=== PATIENT | male | born 1990 | race Two or more races ===

== ENCOUNTER 2023-11-02 15:46 | Inpatient (IN) ==
[2023-11-02 16:42] LABS: Basophils # (auto) 0.04 K/uL (0.00-0.20); Basophils % (auto) 0.3 %; Eosinophils # (auto) 0.18 K/uL (0.00-0.50); Eosinophils % (auto) 1.5 %; Hematocrit (blood only) 45.6 % (42.0-52.0); Hemoglobin 15.8 g/dl (14.0-18.0); Immature Granulocytes # (auto) 0.07 K/uL (0.01-0.20); Immature Granulocytes % (auto) 0.6 %; Lymphocytes # (auto) 2.97 K/uL (1.20-3.40); Lymphocytes % (auto) 25.2 %; Mean Corpuscular Hemoglobin 29.9 pg (25.0-34.0); Mean Corpuscular Hgb Conc 34.6 g/dL (32.0-36.0); Mean Corpuscular Volume 86.4 fL (80.0-100.0); Mean Platelet Volume 8.8 fL (9.4-12.4); Monocytes % (auto) 5.9 %; Neutrophils # (auto) 7.81 K/uL (1.40-6.50); Neutrophils % (auto) 66.5 %; Platelet Count 317 K/uL (130-400); RDW Standard Deviation 38.2 fL (36.4-46.3); Red Blood Count 5.28 M/uL (4.70-6.10); White Blood Count 11.77 K/ul (4.8-10.8)
[2023-11-02 16:58] LABS: Appearance Urine Clear (Clear); Bacteria Urine Automated None Seen (None Seen); Bilirubin Urine Negative (Negative); Blood Urine Trace (Negative); Color Urine Yellow; Glucose Urine UA Negative (Negative); Hyaline Casts Urine Present /lpf (None Presnt); Ketones Urine Trace (Negative); Leukocyte Esterase Urine Trace (Negative); Mucus Urine Present (None Prsent); Nitrite Urine Negative (Negative); Protein Urine 3+ (Negative); Urobilinogen Urine Negative (Negative); WBC Urine Automated 0-5 /hpf (0-5); pH Urine 5.5 (4.5-7.5)
[2023-11-02 17:01] LABS: Albumin Globulin Ratio 1.3 (0.9-2); Albumin Level 5.1 gm/dl (3.4-5.0); BUN Creatinine Ratio 23.4 (10-20); Bilirubin,Total 0.5 mg/dl (0.2-1.0); Calcium 9.5 mg/dl (8.6-10.3); Est GFR (African American) 148.1 ml/min; Est GFR (Non-African American) 127.7 ml/min; Globulin 3.9 gm/dl (2.5-4.0); Potassium 3.5 mmol/L (3.5-5.1)
--- NOTE | 2023-11-02 17:06 | Emergency Department Note ---
Impression & Plan Acute psychosis ED Provider Note HISTORY OF PRESENT ILLNESS: Patient is a 33-year-old male presenting with acute psychosis. Patient was brought in by police custody. State troopers report that they stopped him on a traffic stop and the patient seemed to be speaking nonsensically. The patient then took his car to the [employer] dealership and drove his car into the garage and started taking off his close and speaking nonsensically and police were called. Patient reports that he is hearing voices, and he reports that the voices sound like his fiance, his odcuffw-lv-ack and his fiance's . Reports that the voices are telling him to "go away." Patient denies any suicidal or homicidal ideation. He reports that [facility] but he is not currently on any psychiatric medications. He reports that "I was on an injection but it was too expensive and I could not afford it." He denies seeing any outpatient providers. He reports he is from [place] and "the voices told me to come here." ROS: as above PHYSICAL EXAM: Constitutional: Patient appears in no acute distress. HENT: Head: Normocephalic and atraumatic. Eyes: EOMI, PERRL Mouth/Throat: Mucous membranes moist. Neck: Trachea midline. Neck supple. Skin: Warm and dry. No rash, erythema, pallor or cyanosis Psychiatric: Patient appears well groomed. Makes poor eye contact. Speech is normal volume and rate. Neurological: Alert and keenly responsive. CN II-XII grossly intact, moving all extremities equally and fully. MDM: - Vitals signs showed hypertension and tachycardia. - History obtained via patient and police. History as above. - Chronic conditions affecting care: none - Differential diagnoses include, but are not limited to: Psychosis; UTI; electrolyte abnormality; drug intoxication; alcohol intoxication - External medical records reviewed. - Laboratory workup interpreted by myself showed slight leukocytosis (WBC 11.77); stable electrolytes; slightly elevated anion gap (12); normal TSH; negative alcohol/acetaminophen/salicylate levels - UA negative for infection - UDS negative - COVID negative - Patient started making comments about wanting to kill his jpzeur-zo-ocs and take all of his money and 302 was petitioned by the [facility] health protective services case worker and upheld by myself. On reassessment, the patient is speaking nonsensically and has tangential thought. He does appear to be in acute psychosis. - Patient was evaluated by staff for admission to [facility] psychiatric unit [address] [place] [address] - Patient admitted to inpatient psychiatric unit [address] [place] [address] for further evaluation and management. ASSESSMENT AND PLAN: Diagnosis: Acute psychosis Plan: admit to [address] [place] [address] Past Med/Surg History Problem List (Updated 11/02/23 @ 21:22 by Albina Garcia MD) Acute psychosis (Acute) Social History Smoking Status: Current some day smoker Tobacco Type: Cigarettes Preferred Language: Belarusian Feels Safe at Home: No Gender Identity: Male Home Meds Home Medications Medication Instructions Recorded Confirmed No Known Home Medications 11/02/23 11/02/23 Results & Data (ED) Vital Signs Vital Signs - 24 hr 11/02/23 16:03 11/02/23 19:28 Temperature 37.0 C Temperature Source Oral Pulse Rate 97 H Pulse Rate [Finger] 88 Pulse Rhythm Regular Pulse Rhythm [Finger] Regular Pulse Strength Normal Pulse Strength [Finger] Normal Respiratory Rate 18 18 Respiratory Effort / Characteristics Non-Labored Non-Labored Spontaneous Respiratory Depth Normal Normal Respiratory Pattern Regular Regular Blood Pressure 180/105 H Blood Pressure [Right Arm] 168/94 H Blood Pressure Mean 130 Blood Pressure Mean [Right Arm] 118 Blood Pressure Position Sitting Blood Pressure Position [Right Arm] Sitting Pulse Oximetry 97 97 Oxygen Delivery Method Room Air Room Air Sepsis Recent Fever Within 48 Hours No Sepsis New/Unexplained Change in Mental Status N/A Sepsis Action Taken by Nursing No Action Required Laboratory Data 11/02/23 16:20 11/02/23 16:20 Lab Results 11/02/23 11/02/23 Range/Units 16:03 16:20 WBC 11.77 H (4.8-10.8) K/ul RBC 5.28 (4.70-6.10) M/uL Hgb 15.8 (14.0-18.0) g/dl Hct 45.6 (42.0-52.0) % MCV 86.4 (80.0-100.0) fL MCH 29.9 (25.0-34.0) pg MCHC 34.6 (32.0-36.0) g/dL RDW Std Deviation 38.2 (36.4-46.3) fL RDW Coeff of Arianna 12.0 (11.5-14.5) % Plt Count 317 (130-400) K/uL MPV 8.8 L (9.4-12.4) fL Immature Gran % (Auto) 0.6 % Neut % (Auto) 66.5 % Lymph % (Auto) 25.2 % [place] % (Auto) 5.9 % Eos % (Auto) 1.5 % Baso % (Auto) 0.3 % Neut # (Auto) 7.81 H (1.40-6.50) K/uL Lymph # (Auto) 2.97 (1.20-3.40) K/uL [place] # (Auto) 0.70 H (0.11-0.59) K/uL Eos # (Auto) 0.18 (0.00-0.50) K/uL Baso # (Auto) 0.04 (0.00-0.20) K/uL Immature Gran # (Auto) 0.07 (0.01-0.20) K/uL Sodium 137 (136-145) mmol/L Potassium 3.5 (3.5-5.1) mmol/L Chloride 101 (98-107) mmol/L Carbon Dioxide 24 (21-32) mmol/L Anion Gap 12 H (3-11) BUN 15 (6-23) mg/dl Creatinine 0.64 (0.6-1.4) mg/dl Est Cr Clr Drug Dosing 186.0 ml/min Est GFR ( Amer) 148.1 ml/min Est GFR (Non-Af Amer) 127.7 ml/min BUN/Creatinine Ratio 23.4 H (10-20) Glucose 125 H (70-99(Fasting)) mg/dl Calcium 9.5 (8.6-10.3) mg/dl Total Bilirubin 0.5 (0.2-1.0) mg/dl AST 25 (13-39) U/L ALT 46 (7-52) U/L Alkaline Phosphatase 69 (34-104) U/L Total Protein 9.0 H (6.0-8.3) gm/dl Albumin 5.1 H (3.4-5.0) gm/dl Globulin 3.9 (2.5-4.0) gm/dl Albumin/Globulin Ratio 1.3 (0.9-2) TSH 1.192 (0.300-4.500) uIu/ml Urine Color Yellow Urine Appearance Clear (Clear) Urine pH 5.5 (4.5-7.5) Ur Specific [place] 1.030 (1.000-1.030) Urine Protein 3+ H (Negative) Urine Glucose (UA) Negative (Negative) Urine Ketones Trace H (Negative) Urine Blood Trace H (Negative) Urine Nitrite Negative (Negative) Urine Bilirubin Negative (Negative) Urine Urobilinogen Negative (Negative) Ur Leukocyte Esterase Trace H (Negative) Urine WBC (Auto) 0-5 (0-5) /hpf Urine RBC (Auto) 3-5 H (0-2) /hpf U Hyaline Cast (Auto) 3-5 H (0-2) /lpf U Epithel Cells (Auto) 3-5 H (0-2) /hpf Urine Bacteria (Auto) None Seen (None Seen) Hyaline Casts Present A (None Presnt) /lpf Urine Mucus Present A (None Prsent) Salicylates < 3.0 L (3.0-30) mg/dl Urine Opiates Screen Neg (Neg) Ur Methadone, Qual Neg (Neg) Urine Fentanyl Screen Neg (Neg) Acetaminophen < 3 L (10-30) ug/ml Urine Barbiturates Neg (Neg) Ur Phencyclidine (PCP) Neg (Neg) U Amphetamin/Meth Scrn Neg (Neg) MDMA (Ecstasy) Screen Neg (Neg) U Benzodiazepines Scrn Neg (Neg) Ur Cocaine Metabolite Neg (Neg) U Marijuana (THC) Screen Neg (Neg) Ethyl Alcohol mg/dL < 10.0 (<10.0) mg/dl SARS-CoV-2, RNA, NAAT NEGATIVE (NEGATIVE) Discharge Plan Visit Data Chief Complaint: Mental Health Evaluation Stated Complaint: [facility] ED Provider: Albina Garcia Discharge Problem: Acute psychosis Forms Stand Alone Forms: My [facility], Suicide Prevention Resources Prescriptions Prescriptions: No Action No Known Home Medications Referrals Referrals: PCP,NO [Primary Care Provider] -
[2023-11-02 17:16] LABS: Thyroid Stimulating Hormone 1.192 uIu/ml (0.300-4.500)
[2023-11-02 17:25] LABS: Acetaminophen < 3 ug/ml (10-30); Salicylate < 3.0 mg/dl (3.0-30)
[2023-11-02 18:00] LABS: Amphetamines+Metham, Urine Neg (Neg); Barbiturates, Urine Neg (Neg); Benzodiazepine, Urine Neg (Neg); Cocaine, Urine Neg (Neg); Fentanyl, Urine Neg (Neg); MDMA (Ecstacy), Urine Neg (Neg); Marijuana, Urine Neg (Neg); Methadone, Urine Neg (Neg); Opiate, Urine Neg (Neg); Phencyclidine, Urine Neg (Neg)
[2023-11-02] MEDS ORDERED: ACETAMINOPHEN 325 MG TAB PO PRN (21:00)
[2023-11-02] MEDS ORDERED: MAGNESIUM HYDROXIDE SUSP 30 ML UDC PO PRN (21:00)
[2023-11-02] MEDS ORDERED: ALUMINUM/MAGNESIUM SUSP 30 ML UDC PO PRN (21:00)
[2023-11-02] MEDS ORDERED: SODIUM CHLORIDE 0.65% NA SOLN 45 ML (OCEAN) PRN (21:00)
[2023-11-02] MEDS ORDERED: hydrOXYzine HCl 25 MG TAB PO PRN (21:00)
[2023-11-02] MEDS ORDERED: BISMUTH SUBSALICYLATE LIQD 236 ML PO PRN (21:00)
[2023-11-02] MEDS ORDERED: OLANZapine 5 MG TABLET PO PRN (21:46)
[2023-11-02] MEDS: OLANZapine 10 MG TAB PO SCH (22:04)
[2023-11-02] MEDS: hydrOXYzine HCl 25 MG TAB PO PRN (22:41)
[2023-11-02] MEDS: NICOTINE POLACRILEX 2 MG GUM MT PRN (22:45)
[2023-11-02] MEDS: Patient's ALLERGY Info needs ENTERED STA (22:56)
--- NOTE | 2023-11-03 08:56 | History & Physical ---
Date of Service November 03, 2023 Impression / Recommendations Impression JAMIN BURCH is a 33-year-old man who currently lives in [place] with his parents, has a history of schizophrenia, and was admitted on 11/02/23 21:38 on a 302 involuntary commitment for disorganized/erratic behavior and command auditory hallucinations. His 302 expires on 11/06/2023 at 2016. Diagnostically consistent with unspecified psychosis with differential including acute exacerbation of schizophrenia vs BPAD current episode of john vs schizoaffective disorder current episode of john. Substance-induced or withdrawal unlikely given negative UDS and denial of any recent alcohol use. Discussed medication treatment options in detail. Discussed risks, benefits and alternatives. Patient would like to continue and consented to olanzapine for mood, psychosis and sleep. Reviewed side effects including but not limited to: movement (TD, NMS), cardiac (QTc prolongation), and metabolic (stroke, insulin resistance) and necessity for fasting lipid and glucose labwork and AIMS done with score of 0. MNPR due to acute psychosis, recent HI, command AH Overall I spent a total of 80 minutes for this admission including review of chart records, review of labwork, direct evaluation of the patient, counseling the patient, ordering medication, risk assessment, discussion with the psychiatric liason RN and documentation in the electronic health record. (1) Unspecified psychosis not due to a substance or known physiological condition: (2) Schizophrenia: Plan 11/03/2023: The patient was admitted to the [facility] ([facility] unit) on q15 min checks (behavioral with suicide precautions) for safety. The patient will participate in group, recreational, and milieu therapies and will be offered additional individual and family sessions as clinically appropriate. -Olanzapine 15mg HS -Olanzapine 5mg BID prn for psychosis/agitation -Fasting lipid panel and HbA1c in the morning -Elopement precautions Inventory Assets Strengths: supportive family, has housing, willing to take medication Needs: outpatient providers, additional coping skills, safety and stabilization Suicide Risk Level Suicide Risk Level: Moderate (q15 min suicide checks) (command AH with psychosis and disorganized behaviors but denies SI and feels safe in the hospital) Risk Factors Assessment Male: Yes : No Do You Have Access To A Gun?: No Health Problems: No Mental Health Diagnoses: Yes Substance Use Disorders: No Previous Attempt: Yes Family History of Suicide: No Previous Psychiatric Hospitalization: Yes Hopelessness: No Protective Factors Assessment Buddhism Beliefs: Yes : Yes (maybe engaged?) Employed: No Supportive Family: Yes Psychiatric History Identifying Data JAMIN BURCH is a 33-year-old man who currently lives in [place] with his parents, has a history of schizophrenia, and was admitted on 11/02/23 21:38 on a 302 involuntary commitment for disorganized/erratic behavior and command auditory hallucinations. Chief Complaint "Someone is trying to destroy my family". History of Present Illness Jamin presented to the hospital via police after driving from [place] and parking his car in a local car dealership garage and disrobing. While in the emergency department he reported HI to harm his xlbhtl-ss-say. He was placed on a 302 commitment with the petition stating: "Jamin was brought to ED by State Police after a traffic stop and a disturbance by [facility]arcus at [facility]. Jamin presented to the ED voluntarily, but does not appear to be of sound mind and is unable to sign himself in voluntarily. Jamin appears very disoriented, has admitted to hearing voices/command hallucinations that are telling him to kill his father in law. Jamin believes his father in law is out to get Jamin and Jamin's father, Joon. Jamin is hyper fixated on his father in law and stated to me that his father in law needed to , that he wanted to kill him. Jamin called me into his room in ED and stated he came up with a plan and the plan was he would not kill his father in law if he gave Jamin everything he owns, which includes land, money and houses. Jamin stated he had a mission and needed to finish it. Jamin is from [place] and he stated the voices told him to drive to complete his mission." He accepted olanzapine po last evening after arriving to the unit and reports he slept "like a baby" overnight and without any side effects from the medication today. He has been focused on making multiple phone calls and taking notes on various pieces of paper today. At times playing music from the radio loudly. He expresses significant concerns regarding his jgghqxt-jg-baj in [place], whom he suspects is involved in a conspiracy tied to Gaddafi and the [place] regime. He harbors beliefs that black magic is being employed against his family, implicating both his father, a former um specialist, and his pigthl-oo-znq, a high- ranking official in [facility]. Despite these distressing beliefs, he denies any intent or thoughts of harm towards others and does not feel controlled by the auditory hallucinations. He does feel the voices told him to come to [place] for the "the last fight" and references the number 13 as being influential, noting that it has been 13 years since "the revolution in 2010, they tried to reclaim power using magic and tried to start a war between [place] and [place]." Today he remains focused on his hkxiytn-bn-oxf, rather his fxddvj-na-clt, stating belief that his qesmhsu-uv-jxi "He hates me. I feel like he's greedy. It's about Gaddafi and the regime. They use black magic." Expands that "I think Gaddafi is the devil. He saw it ending in 2010. My dad came to [place] on a mission. They used my dad, me, and my kuekbdx-hu-pvy, who my sister to finish their mission." He reports his sleep was "up and down" prior to last night. He doesn't feel he has any current mental health conditions and expresses a belief that there is an external effort to misrepresent him as mentally ill, a claim he refutes. He resides with his parents in [place] and has a background in automotive work, having owned a garage. His educational journey was interrupted by family issues, which he perceives as part of a deliberate effort to undermine him. He moved to the [place] with his family in 2008. He confirms the absence of firearms at home and discloses a suicide attempt in 2013 via sleeping pill overdose. Regarding other medical conditions he mentions taking vitamins but expresses willingness to forego them temporarily if needed. He also reports experiencing eye issues, though he is unable to speak to any details about the condition or whether he is under the care of an optimist or lost and found clerk though does mention having an eye injection at one point in the past. Past Psychiatric History Current Psychiatric Diagnosis: unspecified Psychotic disorder Outpatient Services: none Previous Psych Admissions: [facility] Dec 2022 Do You Have Access To A Gun?: No History of Previous Suicide Attempt: Yes (2013 via overdose of sleeping pills) Past Medication Trials: Abilify 30mg po (last filled 12/19/2022), hx MORRIS but too expensive Past Head Trauma/Neuro History History of Concussion/Seizure: No Allergies Allergy/AdvReac Type Severity Reaction Status Date / Time No Known Allergies Allergy Unverified 11/02/23 22:44 Home Medications Medication Instructions Recorded Confirmed Type PreserVision AREDS PO BID 11/02/23 History Family History Family History of: Doesn't Know Alcohol History Hx of Alcohol Use Over the Past 12 Months: Yes AUDIT Total Score: 2 Smoking Use Have You Smoked or Used Tobacco Products in the Last 30 Days: Yes tobacco type: cigarettes Smoking Status: Current every day smoker Smoking packs per day: 0.25 Substance History Hx of Prescription Med Misuse Over the Past 12 Months: No Hx of Over the Counter Med Misuse Over the Past 12 Months: No Hx of Inhalent Misuse Over the Past 12 Months: No Hx of Organic Substance Use Over the Past 12 Months: No Hx of Illegal Substances/Street Drug Use Over Past 12 Months: No Problems as a Result of Past Substance Use: None Identified Problems as a Result of Past Substance Use Comments: "related to temple beliefs" Personal History Living Arrangements: Home Childhood: Raised in [facility], moved to the in 2008 Highest Grade Completed: Some College Employment Status: Unemployed Beliefs That Will Affect Care: Cultural Patient History Social History Smoking Status: Current every day smoker Tobacco Type: Cigarettes Preferred Language: Slovak Sub Prior Required: No Beliefs That Will Affect Care: Cultural Feels Safe at Home: Yes Gender Identity: Male Assistive Devices: Glasses Review of Systems Review of Systems: All systems reviewed & are unremarkable except as noted in HPI & below Physical Exam Psychiatric: Orientation: alert and oriented x 3 Apperance: appropriately dressed and appropriately groomed Eye Contact: + fair eye contact Motor Behavior: no abnormal motor movements Speech: + abnormal rate/rhythm/volume of speech (slightly rapid) Affect: + anxious affect and + irritable affect Mood: + anxious mood and + irritable mood Thought Process: + tangential thought process Thought Content: + paranoid, + delusions and + persecution Suicidal Thoughts: denies suicidal thoughts Homicidal Thoughts: denies homicidal thoughts (currently, but endorsed in the ED prior to admission) Hallucinations: + auditory hallucinations and + visual hallucinations Insight: + poor insight Judgment: + limited judgement Vital Signs (Past 24 Hours): Last Vital Signs Temp 36.2 C L 11/03/23 06:05 Pulse 57 L 11/03/23 06:05 Resp 18 11/03/23 06:05 BP 117/74 11/03/23 06:05 Pulse Ox 98 11/03/23 06:05 O2 Del Method Room Air 11/03/23 06:05 Exam Statement: A physical exam was performed in the ED by Dr. Garcia for the purposes of medical clearance. I accept that physical as correct and adequate for the purposes of the inpatient physical exam. Results & Data ([facility]) Laboratory Results Laboratory Results - last 24 hr 11/02/23 11/02/23 16:03 16:20 WBC 11.77 H RBC 5.28 Hgb 15.8 Hct 45.6 MCV 86.4 MCH 29.9 MCHC 34.6 RDW Std Deviation 38.2 RDW Coeff of Arianna 12.0 Plt Count 317 MPV 8.8 L Immature Gran % (Auto) 0.6 Neut % (Auto) 66.5 Lymph % (Auto) 25.2 [place] % (Auto) 5.9 Eos % (Auto) 1.5 Baso % (Auto) 0.3 Neut # (Auto) 7.81 H Lymph # (Auto) 2.97 [place] # (Auto) 0.70 H Eos # (Auto) 0.18 Baso # (Auto) 0.04 Immature Gran # (Auto) 0.07 Sodium 137 Potassium 3.5 Chloride 101 Carbon Dioxide 24 Anion Gap 12 H BUN 15 Creatinine 0.64 Est Cr Clr Drug Dosing 186.0 Est GFR ( Amer) 148.1 Est GFR (Non-Af Amer) 127.7 BUN/Creatinine Ratio 23.4 H Glucose 125 H Calcium 9.5 Total Bilirubin 0.5 AST 25 ALT 46 Alkaline Phosphatase 69 Total Protein 9.0 H Albumin 5.1 H Globulin 3.9 Albumin/Globulin Ratio 1.3 TSH 1.192 Urine Color Yellow Urine Appearance Clear Urine pH 5.5 Ur Specific [place] 1.030 Urine Protein 3+ H Urine Glucose (UA) Negative Urine Ketones Trace H Urine Blood Trace H Urine Nitrite Negative Urine Bilirubin Negative Urine Urobilinogen Negative Ur Leukocyte Esterase Trace H Urine WBC (Auto) 0-5 Urine RBC (Auto) 3-5 H U Hyaline Cast (Auto) 3-5 H U Epithel Cells (Auto) 3-5 H Urine Bacteria (Auto) None Seen Hyaline Casts Present A Urine Mucus Present A Salicylates < 3.0 L Urine Opiates Screen Neg Ur Methadone, Qual Neg Urine Fentanyl Screen Neg Acetaminophen < 3 L Urine Barbiturates Neg Ur Phencyclidine (PCP) Neg U Amphetamin/Meth Scrn Neg MDMA (Ecstasy) Screen Neg U Benzodiazepines Scrn Neg Ur Cocaine Metabolite Neg U Marijuana (THC) Screen Neg Ethyl Alcohol mg/dL < 10.0 SARS-CoV-2, RNA, NAAT NEGATIVE Current Inpatient Medications Current Inpatient Medications: Current Inpatient Medications Acetaminophen (Acetaminophen 325 Mg Tab) 650 mg PO Q4H PRN PRN Reason: Headache or Minor Fever Stop: 12/02/23 20:59 Al Hydrox/Mg Hydrox/Simethicone (Aluminum/Magnesium Susp 30 Ml Udc) 30 ml PO Q4H PRN PRN Reason: GI Upset Stop: 12/02/23 20:59 Bismuth Subsalicylate (Bismuth Subsalicylate Liqd 236 Ml) 15 ml PO PRN PRN PRN Reason: Loose Stool Stop: 12/02/23 20:59 Hydroxyzine HCl (Hydroxyzine Hcl 25 Mg Tab) 50 mg PO HSZ PRN PRN Reason: Insomnia Stop: 12/02/23 20:59 Last Admin: 11/02/23 22:41 Dose: 50 mg Hydroxyzine HCl (Hydroxyzine Hcl 25 Mg Tab) 25 mg PO Q4H PRN PRN Reason: Anxiety Stop: 12/02/23 20:59 Magnesium Hydroxide (Magnesium Hydroxide Susp 30 Ml Udc) 30 ml PO DAILY PRN PRN Reason: Constipation Stop: 12/02/23 20:59 Nicotine Polacrilex (Nicotine Polacrilex 2 Mg Gum) 1 piece MT PRN PRN PRN Reason: Smoking cessation Stop: 12/02/23 22:29 Last Admin: 11/02/23 22:45 Dose: 1 piece Olanzapine (Olanzapine 10 Mg Tab) 10 mg PO HS BONNIE Stop: 12/02/23 21:59 Last Admin: 11/02/23 22:04 Dose: 10 mg Olanzapine (Olanzapine 5 Mg Tablet) 5 mg PO BID PRN PRN Reason: Agitation Stop: 12/02/23 21:45 Sodium Chloride (Sodium Chloride 0.65% Na Soln 45 Ml ([place])) 1 - 2 sprays NA PRN PRN PRN Reason: Nasal Dryness/Congestion Stop: 12/02/23 20:59
[2023-11-03] MEDS: OLANZapine 5 MG TABLET PO SCH (20:47)
[2023-11-04 08:33] LABS: Chol HDL Ratio 5.6 (0-5)
[2023-11-04 08:42] LABS: Estimated Average Glucose 131 mg/dl; Hemoglobin A1C 6.2 % (4.5-5.6)
--- NOTE | 2023-11-04 09:02 | Psychiatric Progress Note ---
Date of Service November 04, 2023 Impression / Recommendations Impression JAMIN BURCH is a 33-year-old man who currently lives in [place] with his parents, has a history of schizophrenia, and was admitted on 11/02/23 21:38 on a 302 involuntary commitment for disorganized/erratic behavior and command auditory hallucinations. His 302 expires on 11/06/2023 at 2016. Diagnostically consistent with unspecified psychosis with differential including acute exacerbation of schizophrenia vs BPAD current episode of john vs schizoaffective disorder current episode of john. Substance-induced or withdrawal unlikely given negative UDS and denial of any recent alcohol use. A: Some lessening of paranoia and reports feeling less controlled by command hallucinations. Declining to sign any ROIs so we can speak with his parents or other supports. Ongoing attempts to get records from his previous hospitalization, no response yet. Seems to be tolerating and showing benefit from olanzapine. Labwork notable for elevated HbA1c and TGs. As his insight improves will attempt to consider transition from olanzapine to abilify for MORRIS option and slightly lower risk of metabolic side effects. MNPR due to acute psychosis, recent HI, command AH Overall, I spent a total of 35 minutes on this case including meeting with the patient, reviewing the chart, nursing report, multidisciplinary team meeting, orders, and documentation. (1) Unspecified psychosis not due to a substance or known physiological condition: (2) Schizophrenia: Plan 11/03/2023: The patient was admitted to the [facility] ([facility] mental health unit) on q15 min checks (behavioral with suicide precautions) for safety. The patient will participate in group, recreational, and milieu therapies and will be offered additional individual and family sessions as clinically appropriate. -Olanzapine 15mg HS -Olanzapine 5mg BID prn for psychosis/agitation -Fasting lipid panel and HbA1c in the morning -Elopement precautions Inventory Assets Strengths: supportive family, has housing, willing to take medication Needs: outpatient providers, additional coping skills, safety and stabilization Suicide Risk Level Suicide Risk Level: Moderate (q15 min suicide checks) (command AH with psychosis and disorganized behaviors but denies SI and feels safe in the hospital) Risk Factors Assessment Male: Yes : No Do You Have Access To A Gun?: No Health Problems: No Mental Health Diagnoses: Yes Substance Use Disorders: No Previous Attempt: Yes Family History of Suicide: No Previous Psychiatric Hospitalization: Yes Hopelessness: No Protective Factors Assessment Amish Beliefs: Yes : Yes (maybe engaged?) Employed: No Supportive Family: Yes Interval History Identifying Information JAMIN BURCH is a 33-year-old man who currently lives in [place] with his parents, has a history of schizophrenia, and was admitted on 11/02/23 21:38 on a 302 involuntary commitment for disorganized/erratic behavior and command audit ory hallucinations. Chief Complaint "Much better they're not sending signals for anything now". Review of Systems Sleep Information Total Hours of Sleep: 8 Meal Information Percent Meal Consumed - Breakfast: 100 Percent Meal Consumed - Lunch: 75 Percent Meal Consumed - Dinner: 100 Subjective Subjective Patient was seen & assessed and interval progress reviewed with treatment team nursing and social work. Restless, guarded, suspicious, playing loud music yesterday. He attended evening community meeting and reported his mood as "grateful". Reported sabianist beliefs about his parents trying to control him using the Quran. Allowed labwork this morning. Today reports his mood is good and "much better" due to not receiving signals anymore. He reports relief noting "they're not controlling me anymore". States that he realizes that the signal was being sent via his girlfriend's number to influence him and his father, [id number], and [id number]. Denies any side effects from the medications nor other concerns. Continues to decline to sign an REYNA to involve his parents or any other supports. States he plans to live in an airbnb after he leaves the hospital. Physical Exam Psychiatric Orientation: alert and oriented x 3 Apperance: appropriately dressed and appropriately groomed Eye Contact: + fair eye contact Motor Behavior: no abnormal motor movements Speech: normal rate/rhythm/volume of speech (slightly rapid) Affect: + constricted affect Mood: + anxious mood Thought Process: + circumstantial thought process Thought Content: + paranoid, + delusions and + persecution Suicidal Thoughts: denies suicidal thoughts Homicidal Thoughts: denies homicidal thoughts Hallucinations: + auditory hallucinations; no visual hallucinations Insight: + limited insight Judgment: + limited judgement Vital Signs (Past 24 Hours) Last Vital Signs Temp 36.2 C L 11/03/23 06:05 Pulse 66 11/04/23 06:18 Resp 16 11/04/23 06:18 BP 137/87 11/04/23 06:18 Pulse Ox 98 11/04/23 06:18 O2 Del Method Room Air 11/04/23 06:18 Results & Data ([facility]) Laboratory Results Laboratory Results - last 24 hr 11/04/23 11/04/23 07:47 07:53 Estimat Average Glucose 131 Hemoglobin A1c 6.2 H Triglycerides 215 H Cholesterol 195 LDL Cholesterol, Calc 117 VLDL Cholesterol, Calc 43 H HDL Cholesterol 35 Cholesterol/HDL Ratio 5.6 H Current Inpatient Medications Current Inpatient Medications: Current Inpatient Medications Acetaminophen (Acetaminophen 325 Mg Tab) 650 mg PO Q4H PRN PRN Reason: Headache or Minor Fever Stop: 12/02/23 20:59 Al Hydrox/Mg Hydrox/Simethicone (Aluminum/Magnesium Susp 30 Ml Udc) 30 ml PO Q4H PRN PRN Reason: GI Upset Stop: 12/02/23 20:59 Bismuth Subsalicylate (Bismuth Subsalicylate Liqd 236 Ml) 15 ml PO PRN PRN PRN Reason: Loose Stool Stop: 12/02/23 20:59 Hydroxyzine HCl (Hydroxyzine Hcl 25 Mg Tab) 50 mg PO HSZ PRN PRN Reason: Insomnia Stop: 12/02/23 20:59 Last Admin: 11/02/23 22:41 Dose: 50 mg Hydroxyzine HCl (Hydroxyzine Hcl 25 Mg Tab) 25 mg PO Q4H PRN PRN Reason: Anxiety Stop: 12/02/23 20:59 Magnesium Hydroxide (Magnesium Hydroxide Susp 30 Ml Udc) 30 ml PO DAILY PRN PRN Reason: Constipation Stop: 12/02/23 20:59 Nicotine Polacrilex (Nicotine Polacrilex 2 Mg Gum) 1 piece MT PRN PRN PRN Reason: Smoking cessation Stop: 12/02/23 22:29 Last Admin: 11/04/23 06:34 Dose: 1 piece Olanzapine (Olanzapine 5 Mg Tablet) 5 mg PO BID PRN PRN Reason: Agitation Stop: 12/02/23 21:45 Olanzapine (Olanzapine 5 Mg Tablet) 15 mg PO HS BONNIE Stop: 12/03/23 21:59 Last Admin: 11/03/23 20:47 Dose: 15 mg Sodium Chloride (Sodium Chloride 0.65% Na Soln 45 Ml ([place])) 1 - 2 sprays NA PRN PRN PRN Reason: Nasal Dryness/Congestion Stop: 12/02/23 20:59 Mental Health & Subst Abuse Tx Therapist Name of Therapist: None Date of Therapist Appointment: N/A Patient Registrar Name of Patient Registrar: N/A Post Discharge Appointments Primary Care Physician Name Of Family Doctor/PCP: None
[2023-11-04] MEDS ORDERED: BENZTROPINE MESYLATE 1 MG TAB PO PRN (22:51)
--- NOTE | 2023-11-05 08:39 | Psychiatric Progress Note ---
Date of Service November 05, 2023 Impression / Recommendations Impression JAMIN BURCH is a 33-year-old man who currently lives in [place] with his parents, has a history of schizophrenia, and was admitted on 11/02/23 21:38 on a 302 involuntary commitment for disorganized/erratic behavior and command auditory hallucinations. His 302 expires on 11/07/2023 @ 1956. Diagnostically consistent with unspecified psychosis with differential including acute exacerbation of schizophrenia vs BPAD current episode of john vs schizoaffective disorder current episode of john. Substance-induced or withdrawal unlikely given negative UDS and denial of any recent alcohol use. A: Still with some possible hyperreligious beliefs and elevated mood but no evidence for acute psychosis, delusions nor paranoia. Participating well in groups. Sleep improving and tolerating olanzapine and agreeable to continuing with this as he likes that it helps with his sleep. Declining support meeting. Unlikely to meet 303 criteria given improvement in symptoms so working on disposition planning including outpatient psychiatry, PCP but options limited due to his lack of health insurance. He is now denying HI. MNPR due to acute psychosis, recent HI, command AH Overall, I spent a total of 30 minutes on this case including meeting with the patient, reviewing the chart, nursing report, multidisciplinary team meeting, orders, and documentation. (1) Unspecified psychosis not due to a substance or known physiological condition: (2) Schizophrenia: (3) Bipolar affective disorder, current episode manic: Plan 11/05/2023: Continue current medications and tx plan. 11/04/2023: Continue current medications and tx plan. 11/03/2023: The patient was admitted to the [facility] ([facility] mental health unit) on q15 min checks (behavioral with suicide precautions) for safety. The patient will participate in group, recreational, and milieu therapies and will be offered additional individual and family sessions as clinically appropriate. -Olanzapine 15mg HS -Olanzapine 5mg BID prn for psychosis/agitation -Fasting lipid panel and HbA1c in the morning -Elopement precautions Inventory Assets Strengths: supportive family, has housing, willing to take medication Needs: outpatient providers, additional coping skills, safety and stabilization Suicide Risk Level Suicide Risk Level: Moderate (q15 min suicide checks) (command AH with psychosis and disorganized behaviors prior to admission, but psychosis improving, denies SI and feels safe in the hospital) Risk Factors Assessment Male: Yes : No Do You Have Access To A Gun?: No Health Problems: No Mental Health Diagnoses: Yes Substance Use Disorders: No Previous Attempt: Yes Family History of Suicide: No Previous Psychiatric Hospitalization: Yes Hopelessness: No Protective Factors Assessment Mormon Beliefs: Yes : Yes (maybe engaged?) Employed: No Supportive Family: Yes Interval History Identifying Information JAMIN BURCH is a 33-year-old man who currently lives in [place] with his parents, has a history of schizophrenia, and was admitted on 11/02/23 21:38 on a 302 involuntary commitment for disorganized/erratic behavior and command auditory hallucinations. Chief Complaint "I'm perfect". Review of Systems Sleep Information Total Hours of Sleep: 5.5 Meal Information Percent Meal Consumed - Breakfast: 100 Percent Meal Consumed - Lunch: 100 Percent Meal Consumed - Dinner: 100 Subjective Subjective Patient was seen & assessed and interval progress reviewed with treatment team nursing and social work. Attending some groups, not making repeated requests for his phone. Slept about 5.5 hours last night but then napped much of the morning so estimate 8 hours of sleep. Today reports his mood is "perfect" which he attributes to no longer being bothered by voices or feeling that others are interfering with him. He still feels his [id number] doesn't like him very much but adamantly denies any thoughts of HI toward him nor anyone else and doesn't feel his [id number] is doing anything to him stating "it's in the past" and "it's over". Makes reference to being "grateful to God" that he's feeling better. Still doesn't want to involve his parents or any other supports. Hesitant about getting a psychiatrist but is agreeable to referral options and agreeable to continuing medication once reassured that olanzapine is not addictive. He's not interested in a MORRIS option due to this being cost prohibitive in the past. Physical Exam Psychiatric Orientation: alert and oriented x 3 Apperance: appropriately dressed and appropriately groomed Eye Contact: + fair eye contact Motor Behavior: no abnormal motor movements Speech: normal rate/rhythm/volume of speech Affect: + constricted affect Mood: no depressed mood and no anxious mood Thought Process: goal directed thought process Thought Content: reality based without delusions Suicidal Thoughts: denies suicidal thoughts Homicidal Thoughts: denies homicidal thoughts Hallucinations: no auditory hallucinations and no visual hallucinations Insight: + limited insight Judgment: + fair judgement Vital Signs (Past 24 Hours) Last Vital Signs Temp 36.6 C 11/05/23 06:31 Pulse 59 L 11/05/23 06:32 Resp 16 11/05/23 06:31 BP 122/83 11/05/23 06:32 Pulse Ox 98 11/04/23 06:18 O2 Del Method Room Air 11/04/23 06:18 Results & Data ([facility]) Laboratory Results Laboratory Results - last 24 hr 11/04/23 07:53 Estimat Average Glucose 131 Hemoglobin A1c 6.2 H Current Inpatient Medications Current Inpatient Medications: Current Inpatient Medications Acetaminophen (Acetaminophen 325 Mg Tab) 650 mg PO Q4H PRN PRN Reason: Headache or Minor Fever Stop: 12/02/23 20:59 Al Hydrox/Mg Hydrox/Simethicone (Aluminum/Magnesium Susp 30 Ml Udc) 30 ml PO Q4H PRN PRN Reason: GI Upset Stop: 12/02/23 20:59 Benztropine Mesylate (Benztropine Mesylate 1 Mg Tab) 1 mg PO BID PRN PRN Reason: EPS Stop: 12/04/23 22:50 Bismuth Subsalicylate (Bismuth Subsalicylate Liqd 236 Ml) 15 ml PO PRN PRN PRN Reason: Loose Stool Stop: 12/02/23 20:59 Hydroxyzine HCl (Hydroxyzine Hcl 25 Mg Tab) 50 mg PO HSZ PRN PRN Reason: Insomnia Stop: 12/02/23 20:59 Last Admin: 11/04/23 22:52 Dose: 50 mg Hydroxyzine HCl (Hydroxyzine Hcl 25 Mg Tab) 25 mg PO Q4H PRN PRN Reason: Anxiety Stop: 12/02/23 20:59 Magnesium Hydroxide (Magnesium Hydroxide Susp 30 Ml Udc) 30 ml PO DAILY PRN PRN Reason: Constipation Stop: 12/02/23 20:59 Nicotine Polacrilex (Nicotine Polacrilex 2 Mg Gum) 1 piece MT PRN PRN PRN Reason: Smoking cessation Stop: 12/02/23 22:29 Last Admin: 11/04/23 17:55 Dose: 1 piece Olanzapine (Olanzapine 5 Mg Tablet) 5 mg PO BID PRN PRN Reason: Agitation Stop: 12/02/23 21:45 Olanzapine (Olanzapine 5 Mg Tablet) 15 mg PO HS BONNIE Stop: 12/03/23 21:59 Last Admin: 11/04/23 20:53 Dose: 15 mg Sodium Chloride (Sodium Chloride 0.65% Na Soln 45 Ml ([place])) 1 - 2 sprays NA PRN PRN PRN Reason: Nasal Dryness/Congestion Stop: 12/02/23 20:59 Mental Health & Subst Abuse Tx Therapist Name of Therapist: None Date of Therapist Appointment: N/A Ecmo Specialist Name of Ecmo Specialist: N/A Post Discharge Appointments Primary Care Physician Name Of Family Doctor/PCP: None
[2023-11-05] MEDS: OLANZapine 5 MG TABLET PO SCH (21:17)
[2023-11-05] MEDS ORDERED: OLANZapine 10 MG TAB PO SCH (22:00)
--- NOTE | 2023-11-06 08:49 | Psychiatric Progress Note ---
Date of Service November 06, 2023 Impression / Recommendations Impression JAMIN BURCH is a 33-year-old man who currently lives in [place] with his parents, has a history of schizophrenia, and was admitted on 11/02/23 21:38 on a 302 involuntary commitment for disorganized/erratic behavior and command auditory hallucinations. His 302 expires on 11/07/2023 @ 1956. Diagnostically consistent with unspecified psychosis with differential including acute exacerbation of schizophrenia vs BPAD current episode of john vs schizoaffective disorder current episode of john. Substance-induced or withdrawal unlikely given negative UDS and denial of any recent alcohol use. A: Mood stable, future-oriented, denying any hallucinations, nor paranoia. Denies HI. Tolerating discussions about his conditions and need for medications and agreeable to this and agrees to outpatient follow-up. Reviewed indication for metformin for pre-diabetes and to reduce risk of olanzapine-induced weight gain and he consents to starting this, reviewed side effects including but not limited to GI symptoms. Despite encouragement does not want to involve his family or other supports. He is not meeting 303 criteria. MNPR due to acute psychosis, recent HI, prior command AH Overall, I spent a total of 25 minutes on this case including meeting with the patient, reviewing the chart, nursing report, multidisciplinary team meeting, orders, and documentation. (1) Unspecified psychosis not due to a substance or known physiological condition: (2) Schizophrenia: (3) Bipolar affective disorder, current episode manic: Plan 11/06/2023: Start metformin ER 500mg qdinner 11/05/2023: Continue current medications and tx plan. 11/04/2023: Continue current medications and tx plan. 11/03/2023: The patient was admitted to the [facility] ([facility] mental health unit) on q15 min checks (behavioral with suicide precautions) for safety. The patient will participate in group, recreational, and milieu therapies and will be offered additional individual and family sessions as clinically appropriate. -Olanzapine 15mg HS -Olanzapine 5mg BID prn for psychosis/agitation -Fasting lipid panel and HbA1c in the morning -Elopement precautions Inventory Assets Strengths: supportive family, has housing, willing to take medication Needs: outpatient providers, additional coping skills, safety and stabilization Suicide Risk Level Suicide Risk Level: Moderate (q15 min suicide checks) (command AH with psychosis and disorganized behaviors prior to admission, but no longer with any symptoms of psychosis, denies SI and feels safe in the hospital) Risk Factors Assessment Male: Yes : No Do You Have Access To A Gun?: No Health Problems: No Mental Health Diagnoses: Yes Substance Use Disorders: No Previous Attempt: Yes Family History of Suicide: No Previous Psychiatric Hospitalization: Yes Hopelessness: No Protective Factors Assessment Scientology Beliefs: Yes : Yes (maybe engaged?) Employed: No Supportive Family: Yes Interval History Identifying Information JAMIN BURCH is a 33-year-old man who currently lives in [place] with his parents, has a history of schizophrenia, and was admitted on 11/02/23 21:38 on a 302 involuntary commitment for disorganized/erratic behavior and command auditory hallucinations. Chief Complaint "I'm doing much better". Review of Systems Sleep Information Total Hours of Sleep: 5.25 Meal Information Percent Meal Consumed - Breakfast: 100 Percent Meal Consumed - Lunch: 100 Percent Meal Consumed - Dinner: 90 Subjective Subjective Patient was seen & assessed and interval progress reviewed with treatment team nursing and social work. Attending most groups. Spends the majority of his day watching music videos. Rated his mood an 8/10 and "grateful to God". Slept 5.25 hours. Today reports ongoing mood improvement. Feels he is no longer at risk of being harmed by anyone as "they lost their power". Denies any auditory hallucinations. Continues to decline involving any supports despite encouraging this. He is agreeable to outpatient medical and psychiatry follow-up. Reviewed his HbA1c and recommendation to start metformin, he is agreeable to this and notes that he wants to start exercising more and will focus on "eating less". Physical Exam Psychiatric Orientation: alert and oriented x 3 Apperance: appropriately dressed and appropriately groomed Eye Contact: + fair eye contact Motor Behavior: no abnormal motor movements Speech: normal rate/rhythm/volume of speech Affect: euthymic affect Mood: no depressed mood and no anxious mood Thought Process: goal directed thought process Thought Content: reality based without delusions Suicidal Thoughts: denies suicidal thoughts Homicidal Thoughts: denies homicidal thoughts Hallucinations: no auditory hallucinations and no visual hallucinations Insight: + fair insight Judgment: + fair judgement Vital Signs (Past 24 Hours) Last Vital Signs Temp 36.6 C 11/06/23 06:34 Pulse 76 09/04/24 06:35 Resp 18 11/06/23 06:34 BP 143/90 H 11/06/23 06:35 Pulse Ox 98 11/04/23 06:18 O2 Del Method Room Air 11/04/23 06:18 Results & Data ([facility]) Current Inpatient Medications Current Inpatient Medications: Current Inpatient Medications Acetaminophen (Acetaminophen 325 Mg Tab) 650 mg PO Q4H PRN PRN Reason: Headache or Minor Fever Stop: 12/02/23 20:59 Al Hydrox/Mg Hydrox/Simethicone (Aluminum/Magnesium Susp 30 Ml Udc) 30 ml PO Q4H PRN PRN Reason: GI Upset Stop: 12/02/23 20:59 Benztropine Mesylate (Benztropine Mesylate 1 Mg Tab) 1 mg PO BID PRN PRN Reason: EPS Stop: 12/04/23 22:50 Bismuth Subsalicylate (Bismuth Subsalicylate Liqd 236 Ml) 15 ml PO PRN PRN PRN Reason: Loose Stool Stop: 12/02/23 20:59 Hydroxyzine HCl (Hydroxyzine Hcl 25 Mg Tab) 50 mg PO HSZ PRN PRN Reason: Insomnia Stop: 12/02/23 20:59 Last Admin: 11/04/23 22:52 Dose: 50 mg Hydroxyzine HCl (Hydroxyzine Hcl 25 Mg Tab) 25 mg PO Q4H PRN PRN Reason: Anxiety Stop: 12/02/23 20:59 Magnesium Hydroxide (Magnesium Hydroxide Susp 30 Ml Udc) 30 ml PO DAILY PRN PRN Reason: Constipation Stop: 12/02/23 20:59 Nicotine Polacrilex (Nicotine Polacrilex 2 Mg Gum) 1 piece MT PRN PRN PRN Reason: Smoking cessation Stop: 12/02/23 22:29 Last Admin: 11/05/23 20:46 Dose: 1 piece Olanzapine (Olanzapine 5 Mg Tablet) 5 mg PO BID PRN PRN Reason: Agitation Stop: 12/02/23 21:45 Olanzapine (Olanzapine 5 Mg Tablet) 15 mg PO HS BONNIE Stop: 12/05/23 21:59 Last Admin: 11/05/23 21:17 Dose: 15 mg Sodium Chloride (Sodium Chloride 0.65% Na Soln 45 Ml ([place])) 1 - 2 sprays NA PRN PRN PRN Reason: Nasal Dryness/Congestion Stop: 12/02/23 20:59 Mental Health & Subst Abuse Tx Therapist Name of Therapist: None Date of Therapist Appointment: N/A Ball Maker Name of Ball Maker: N/A Post Discharge Appointments Primary Care Physician Name Of Family Doctor/PCP: None
[2023-11-06] MEDS: metFORMIN HCL ER 500 MG TABCR PO SCH (18:02)
--- NOTE | 2023-11-07 08:52 | Discharge Summary ---
Date of Service November 07, 2023 History of Present Illness Reddy presented to the hospital via police after driving from [place] and parking his car in a local car dealership garage and disrobing. While in the emergency department he reported HI to harm his nqwsqo-ml-mub. He was placed on a 302 commitment with the petition stating: "Reddy was brought to ED by [employer] after a traffic stop and a disturbance by Red[facility] at [facility]. Reddy presented to the ED voluntarily, but does not appear to be of sound mind and is unable to sign himself in voluntarily. Reddy appears very disoriented, has admitted to hearing voices/command hallucinations that are telling him to kill his father in law. Reddy believes his father in law is out to get Reddy and Reddy's father, Joon. Reddy is hyper fixated on his father in law and stated to me that his father in law needed to , that he wanted to kill him. Reddy called me into his room in ED and stated he came up with a plan and the plan was he would not kill his father in law if he gave Reddy everything he owns, which includes land, money and houses. Reddy stated he had a mission and needed to finish it. Reddy is from [place] and he stated the voices told him to drive to complete his mission." He accepted olanzapine po last evening after arriving to the unit and reports he slept "like a baby" overnight and without any side effects from the medication today. He has been focused on making multiple phone calls and taking notes on various pieces of paper today. At times playing music from the radio loudly. He expresses significant concerns regarding his obnmmyu-ki-jxx in [place], whom he suspects is involved in a conspiracy tied to Gaddafi and the [place] regime. He harbors beliefs that black [employer] is being employed against his family, implicating both his father, a former law enforcement officer, and his gzalij-hg-vhy, a high- ranking official in [place]. Despite these distressing beliefs, he denies any intent or thoughts of harm towards others and does not feel controlled by the auditory hallucinations. He does feel the voices told him to come to [place] for the "the last fight" and references the number 13 as being influential, noting that it has been 13 years since "the revolution in 2010, they tried to reclaim power using magic and tried to start a war between [place] and [place]." Today he remains focused on his lzdxxzc-sx-qem, rather his vyaatv-ll-vhj, stating belief that his xxnkvqc-lt-xrn "He hates me. I feel like he's greedy. It's about Gaddafi and the regime. They use black magic." Expands that "I think Gaddafi is the devil. He saw it ending in 2010. My dad came to [place] on a mission. They used my dad, me, and my wxennfn-bg-ftm, who my sister to finish their mission." He reports his sleep was "up and down" prior to last night. He doesn't feel he has any current mental health conditions and expresses a belief that there is an external effort to misrepresent him as mentally ill, a claim he refutes. He resides with his parents in [place] and has a background in automotive work, having owned a [employer]. His educational journey was interrupted by family issues, which he perceives as part of a deliberate effort to undermine him. He moved to the [place] with his family in 2008. He confirms the absence of firearms at home and discloses a suicide attempt in 2012 via sleeping pill overdose. Regarding other medical conditions he mentions taking vitamins but expresses willingness to forego them temporarily if needed. He also reports experiencing eye issues, though he is unable to speak to any details about the condition or whether he is under the care of an optimist or private branch exchange repairer though does mention having an eye injection at one point in the past. Physical Exam Vital Signs (Past 24 Hours) Last Vital Signs Temp 36.1 C L 11/07/23 06:56 Pulse 81 11/07/23 06:56 Resp 16 11/07/23 06:56 BP 122/87 11/07/23 06:56 Pulse Ox 98 11/07/23 06:56 O2 Del Method Room Air 11/07/23 06:56 Principal Diagnosis Schizophrenia Psychiatric Data See daily stay summary. In short, patient was engaged with the social/therapeutic milieu of the unit, safety was maintained and the patient was cooperative with care. Medication changes included initiation of olanzapine for schziophrenia and metformin for pre-diabetes and to reduce risk for antipsychotic-induced weight gain and they tolerated this well. Baseline labs of fasting glucose, fasting lipid profile, and weight were preformed (see labwork results below). Recommend repeat weight in one month. Recommend repeat fasting glucose, HbA1c and fasting lipid profile every 12 weeks and then annually. If symptoms arise recommend checking BP, EKG, prolactin level as clinically indicated or relevant. He declined a support session but spoke with family members on the phone during his admission and safety plan was completed prior to discharge. They participated in safety planning and in discussions about ways to seek support and recognizing warning signs and utilizing coping skills. Reviewed ways to have their safety plan and contacts easily available. Reviewed importance of seeking emergency care should they feel unsafe in the future which they agree to do. On the day of discharge they stated their mood was "relieved and positive" as well as expressing gratitude for the help he received during his hospitalization. He remained future-oriented including getting his car, driving back to [place], seeing his family, starting to exercise more and engaging in aftercare appointments for primary care with option then to be seen by psychiatry. Day of Discharge Assessment Today the patient voices readiness for discharge. They note improvement in mood and anxiety. They deny thoughts of harm to self or others. Thoughts are organized and they are clinically improved from admission. There is no evidence of psychosis. They improved in the hospital with support and medication adjustments. They agree to take medications as prescribed and keep follow-up a ppointments. At the time of the discharge they are deemed to be stable and appropriate for outpatient level of care. They are not deemed to be at imminent risk of harm to self or others. They are aware of emergency and crisis services. Knows to call 911 or go to nearest emergency care center if in a crisis which cannot be handled as an outpatient. Suicide risk assessment: Acute risk is low given improvement in mood and denial of SI, lack of access to lethal means, improvement in sleep, hopefulness and improvement in psychosis. Chronic risk is low to moderate given some non-modifiable risk factors: periods of impulsivity, prior attempt, prior psychiatric hospitalizations, mood disorder/schizophrenia, but also with protective factors including good social support, sense of responsibility to family and social supports, positive coping skills, positive problem solving, willingness to engage with treatment and self- observation. Counseled on ways to reduce acute and chronic risk including engaging with outpatient providers, using safety plan if needed, utilizing supports, taking medication, and using coping skills. Modifiable risk factors of psychosis was addressed during hospitalization through development of new coping skills, safety planning, and medication adjustments. Acute risk of harm to others is low given denial of HI, no aggressive behaviors, improvement in psychosis and re-engagement with his family via phone calls. Chronic risk is low given no known history of violence, legal charges or trauma. Discharge physical exam: See admission H&P, MSE per above and day of discharge summary. Overall, I spent a total of 40 minutes on this case including meeting with the patient, reviewing the chart, nursing report, multidisciplinary team meeting, discharge orders, anticipatory planning, safety planning, risk assessment and documentation. Transition of Care Transition Of Care Record: was reviewed with the patient Advance Directives Advance Directives Information Provided: No Advance Directives: No Mental Health Advance Directive: No Advance Directives on File: No Living Will: No Power of Middle School Reading Teacher: No Advance Directives Reason:: Declines as Mental Health Visit. Suicide Risk Level Suicide Risk Level Comments: low, see above Risk Factors Assessment Male: Yes : No Do You Have Access To A Gun?: No Health Problems: No Mental Health Diagnoses: Yes Substance Use Disorders: No Previous Attempt: Yes Family History of Suicide: No Previous Psychiatric Hospitalization: Yes Hopelessness: No Protective Factors Assessment Caodaism Beliefs: Yes : Yes (maybe engaged?) Employed: No Stable Relationships: Yes Supportive Family: Yes Discharge Data Lab Results 11/02/23 11/02/23 11/04/23 16:03 16:20 07:47 WBC 11.77 H RBC 5.28 Hgb 15.8 Hct 45.6 MCV 86.4 MCH 29.9 MCHC 34.6 RDW Std Deviation 38.2 RDW Coeff of Arianna 12.0 Plt Count 317 MPV 8.8 L Immature Gran % (Auto) 0.6 Neut % (Auto) 66.5 Lymph % (Auto) 25.2 [place] % (Auto) 5.9 Eos % (Auto) 1.5 Baso % (Auto) 0.3 Neut # (Auto) 7.81 H Lymph # (Auto) 2.97 [place] # (Auto) 0.70 H Eos # (Auto) 0.18 Baso # (Auto) 0.04 Immature Gran # (Auto) 0.07 Sodium 137 Potassium 3.5 Chloride 101 Carbon Dioxide 24 Anion Gap 12 H BUN 15 Creatinine 0.64 Est Cr Clr Drug Dosing 186.0 Est GFR ( Amer) 148.1 Est GFR (Non-Af Amer) 127.7 BUN/Creatinine Ratio 23.4 H Glucose 125 H Estimat Average Glucose Hemoglobin A1c Calcium 9.5 Total Bilirubin 0.5 AST 25 ALT 46 Alkaline Phosphatase 69 Total Protein 9.0 H Albumin 5.1 H Globulin 3.9 Albumin/Globulin Ratio 1.3 Triglycerides 215 H Cholesterol 195 LDL Cholesterol, Calc 117 VLDL Cholesterol, Calc 43 H HDL Cholesterol 35 Cholesterol/HDL Ratio 5.6 H TSH 1.192 Urine Color Yellow Urine Appearance Clear Urine pH 5.5 Ur Specific [place] 1.030 Urine Protein 3+ H Urine Glucose (UA) Negative Urine Ketones Trace H Urine Blood Trace H Urine Nitrite Negative Urine Bilirubin Negative Urine Urobilinogen Negative Ur Leukocyte Esterase Trace H Urine WBC (Auto) 0-5 Urine RBC (Auto) 3-5 H U Hyaline Cast (Auto) 3-5 H U Epithel Cells (Auto) 3-5 H Urine Bacteria (Auto) None Seen Hyaline Casts Present A Urine Mucus Present A Salicylates < 3.0 L Urine Opiates Screen Neg Ur Methadone, Qual Neg Urine Fentanyl Screen Neg Acetaminophen < 3 L Urine Barbiturates Neg Ur Phencyclidine (PCP) Neg U Amphetamin/Meth Scrn Neg MDMA (Ecstasy) Screen Neg U Benzodiazepines Scrn Neg Ur Cocaine Metabolite Neg U Marijuana (THC) Screen Neg Ethyl Alcohol mg/dL < 10.0 SARS-CoV-2, RNA, NAAT NEGATIVE 11/04/23 07:53 WBC RBC Hgb Hct MCV MCH MCHC RDW Std Deviation RDW Coeff of Arianna Plt Count MPV Immature Gran % (Auto) Neut % (Auto) Lymph % (Auto) [place] % (Auto) Eos % (Auto) Baso % (Auto) Neut # (Auto) Lymph # (Auto) [place] # (Auto) Eos # (Auto) Baso # (Auto) Immature Gran # (Auto) Sodium Potassium Chloride Carbon Dioxide Anion Gap BUN Creatinine Est Cr Clr Drug Dosing Est GFR ( Amer) Est GFR (Non-Af Amer) BUN/Creatinine Ratio Glucose Estimat Average Glucose 131 Hemoglobin A1c 6.2 H Calcium Total Bilirubin AST ALT Alkaline Phosphatase Total Protein Albumin Globulin Albumin/Globulin Ratio Triglycerides Cholesterol LDL Cholesterol, Calc VLDL Cholesterol, Calc HDL Cholesterol Cholesterol/HDL Ratio TSH Urine Color Urine Appearance Urine pH Ur Specific [place] Urine Protein Urine Glucose (UA) Urine Ketones Urine Blood Urine Nitrite Urine Bilirubin Urine Urobilinogen Ur Leukocyte Esterase Urine WBC (Auto) Urine RBC (Auto) U Hyaline Cast (Auto) U Epithel Cells (Auto) Urine Bacteria (Auto) Hyaline Casts Urine Mucus Salicylates Urine Opiates Screen Ur Methadone, Qual Urine Fentanyl Screen Acetaminophen Urine Barbiturates Ur Phencyclidine (PCP) U Amphetamin/Meth Scrn MDMA (Ecstasy) Screen U Benzodiazepines Scrn Ur Cocaine Metabolite U Marijuana (THC) Screen Ethyl Alcohol mg/dL SARS-CoV-2, RNA, NAAT Hospital Course (1) Unspecified psychosis not due to a substance or known physiological condition: (2) Schizophrenia: (3) Bipolar affective disorder, current episode manic: Plan 11/07/2023: 302 expiring, doesn't meet 303 criteria, ready for discharge 11/06/2023: Start metformin ER 500mg qdinner 11/05/2023: Continue current medications and tx plan. 11/04/2023: Continue current medications and tx plan. 11/03/2023: The patient was admitted to the [facility] ([facility] unit) on q15 min checks (behavioral with suicide precautions) for safety. The patient will participate in group, recreational, and milieu therapies and will be offered additional individual and family sessions as clinically appropriate. -Olanzapine 15mg HS -Olanzapine 5mg BID prn for psychosis/agitation -Fasting lipid panel and HbA1c in the morning -Elopement precautions Mental Health & Subst Abuse Tx Psychiatrist Name of Psychiatrist: None Therapist Name of Therapist: None Date of Therapist Appointment: N/A Product Engineer Name of Product Engineer: None Post Discharge Appointments Primary Care Physician Name Of Family Doctor/PCP: [facility] - Dr. Artemio Calderon Primary Care Date of Future Appointment with PCP: 11/20/23 - Saturday Time of Appointment with PCP: 3PM Provider Appointment Comment: In person - [address] [facility] [address] Discharge Plan Discharge Items Patient Disposition: Home - Self-Care Reason For Visit: UNSPECIFIED PSYCHOTIC DISORDER Discharge Diagnosis: Schizophrenia Activity: Resume your previous activity Non-emergency contact: Primary Care Provider Call non-emergency contact if: you have any medication questions and your symptoms worsen Follow-up/Referrals: PCP,NO [Primary Care Provider] - Diet: Regular Addtl Attending Provider Instructions: SPECIAL CARE INSTRUCTIONS: 1. Follow through with your scheduled aftercare appointments. If unable to keep an appointment, please call to reschedule. 2. Take your medication only as prescribed. Medication should not be changed or stopped without the approval of your doctor. In the event of worsening symptoms or concerns about side effects, contact your doctor immediately. 3. Utilize new healthy coping skills, anger management skills, and stress management skills learned during your hospitalization. Journal feelings and process them with a support person. Identify stressors or situations that may result in relapse, deterioration or inappropriate behaviors and develop a plan to deal with those issues. 4. If your coping skills are ineffective and you are in crisis, contact your outpatient providers for direction. If unable to reach your providers, please call the [facility] CRISIS LINE AT , go to the [facility] walk-in center at [address], [place], or go to the closest Emergency Room. 5. Avoid alcohol and un-prescribed drugs. 6. You have been provided with the Mental Health Advance Directives Pamphlet for your review. 7. Your condition is stable for discharge to outpatient level of care, but recovery is an ongoing process. Ifthoughts to harm yourself or others return, follow the safety plan developed during your stay. Planning for a safe return home includes securing weapons. Our treatment team recommends weaponsbe removed from the home until your outpatient provider reassesses your progress. In rare cases where the items themselvescannot be removed, guns and ammunitionshould be secured separatelyand keys stored by a reliable personoutside of the home. If you were admitted on an involuntary commitment, the police or other legal authorities may be involved in this process. AFTERCARE APPOINTMENTS: * Please call your insurance company prior to your scheduled appointment to confirm your aftercare providers are covered. Take your insurance information to your appointments. WHO TO CALL AND WHEN: Medical Emergencies: For questions or emergencies related to your hospital stay, please contact the Inpatient Behavioral Health Unit at [phone]. A silver service waiter is on-call 24/09 for the Behavioral Health Unit for emergencies At any time you feel your situation is an emergency, you may also call 911 immediately. National Crisis Hotline: 987 Pending Studies at Discharge: No Stand-Alone Forms: My [facility] Medications and DC Order Prescriptions: New metformin 500 mg Tablet Extended Release 24 Hr 500 mg PO DAILYBD 30 Days Qty: 30 0RF olanzapine 15 mg tablet 15 mg PO HS 30 Days Qty: 30 0RF Continued PreserVision AREDS PO BID Discharge Orders: Discharge Order (Routine); Ordered 11/07/23 Ordered By: Radha Minor Admission Data Admit Date/Time: 11/02/23 21:38 Attending Provider: Rahda Minor Admit Provider: Radha Minor Primary Care Provider: PCP,NO Other Interventions: Discharge Summary Assessment (RN) Last Done: 11/07/23 13:03 Coding Level of Care Code 11856 D/C day mgmt > 30 min Diagnoses Unspecified psychosis not due to a substance or known physiological condition F29 Schizophrenia F20.9 Bipolar affective disorder, current episode manic F31.10
== END 2023-11-07 13:23 | disposition home or self-care (01) | DRG 885 ==
LOC: ED 15:46 → 3S 21:38